=== PATIENT | female | born 1995 | race Caucasian/White ===

== ENCOUNTER 2016-10-05 05:23 | Emergency (ER) | payer BC, OTHER ==
[~2016-10-05] VITALS: Ht 165.1 cm; Wt 72.0 kg
[~2016-10-05 05:23] MED LIST: DOXY100T PO; HYDR-3580 PO
[2016-10-05 05:29] VITALS: BP 131/92; PULSE 89; RESP 12; TEMP 97.5; O2SAT 97
--- NOTE | 2016-10-05 05:40 | PD ---
HPI Chief Complaint: Laceration/Skin Injury Time Seen by Provider: 05:30 Travel History International Travel<30 days: No Contact w/Intl Traveler<30days: No Traveled to known affect area: No History of Present Illness HPI 21-year-old female presents for evaluation laceration to the chin. Prior to arrival she tripped on the sidewalk and fell, striking her chin against the ground. No loss of consciousness. She sustained a laceration to the chin which has been bleeding somewhat. She denies any other injuries. She denies any headache, intraoral injury, neck or back pain, injury to the extremities or torso. She is up-to-date on her tetanus vaccination. Other complaints. FOR[facility]LY [facility] Past Medical History Diminished Hearing: No Immunizations Current: Yes ?: Not LMP: 09/27/16 Past Surgical History Ear Surgery: Yes (Eustachian tubes X's 3) Tonsillectomy: Yes Other Surgery: Yes (Adenoids ) Social History Alcohol Use: Yes Tobacco Use: No (Quit March 03, 2014) Substance Use: No (States only using for 6 mons - states maybe once a week.) Allergies-Medications (Allergen,Severity, Reaction): Coded Allergies: No Known Allergies (Verified , 10/05/16) Reported Meds & Prescriptions Reported Meds & Active Scripts Active No Active Prescriptions or Reported Medications Review of Systems Except as stated in HPI: all other systems reviewed are Neg Physical Exam Narrative GENERAL: Well-nourished female in no acute distress SKIN: Warm and dry. 1.5 cm linear laceration to the chin. HEAD: Atraumatic. Normocephalic. EYES: Pupils equal and round. No scleral icterus. No injection or drainage. ENT: No nasal bleeding or discharge. Mucous membranes pink and moist. NECK: Trachea midline. No JVD. CARDIOVASCULAR: Regular rate and rhythm. No murmur appreciated. RESPIRATORY: No accessory muscle use. Clear to auscultation. Breath sounds equal bilaterally. GASTROINTESTINAL: Abdomen soft, non-tender, nondistended. Hepatic and splenic margins not palpable. MUSCULOSKELETAL: No obvious deformities. NEUROLOGICAL: Awake and alert. No obvious cranial nerve deficits. Motor grossly within normal limits. Normal speech. Data Data Last Documented VS Vital Signs Date Time Temp Pulse Resp B/P Pulse Ox O2 Delivery O2 Flow Rate FiO2 10/05/16 05:29 97.5 89 12 131/92 97 Orders Lidocai-Epi 1%-1:100,000 Inj (Xylocaine- (10/05/16 05:45) MDM Medical Decision Making Medical Screen Exam Complete: Yes Emergency Medical Condition: Yes Medical Record Reviewed: Yes Differential Diagnosis Laceration, facial fracture, intracranial hemorrhage, abrasion Narrative Course Patient has an isolated laceration to the chin with no other apparent injury. The laceration will be repaired with sutures, she verbally consents. She is stable for discharge. Procedures Procedure Narrative LACERATION LOCATION: Chin LENGTH: 1.5 cm NUMBER OF STITCHES/FILIBERTO: 5 REPAIR: The area of the laceration was prepped with Betadine and sterilely draped. The laceration was infiltrated with 1% lidocaine with epinephrine. The wound was copiously irrigated and explored without evidence of foreign body , tendon injury or neurovascular injury. The wound was closed using 6-0 PROLENE simple interrupted. This was a single layer repair. A sterile dressing was applied. The patient was advised to keep the dressing clean and dry. Patient tolerated the procedure well. Diagnosis Primary Impression: Facial laceration Qualified Code: S01.81XA - Facial laceration, initial encounter Additional Instructions: Wash with soap and water and apply antibiotic cream daily. Return in 5-7 days for suture removal. Med/Other Pt SpecificInfo: Wound Care Scripts No Active Prescriptions or Reported Meds Disposition: 01 DISCHARGE HOME Condition: Stable Sahil Sparrow Oct 05, 2016 05:40
[2016-10-05] MEDS ORDERED: LIDOCAINE 1%/EPINEPHrine 1:100,000 SOLN 20 ML VIAL INFIL ONE (05:45)
== END 2016-10-05 06:17 | disposition home or self-care (01) ==
LOC: NEPD 05:23
DX: S01.81XA Laceration without foreign body of other part of head, initial encounter (principal); Z87.891 Personal history of nicotine dependence; W01.0XXA Fall on same level from slipping, tripping and stumbling without subsequent striking against object, initial encounter
CPT/HCPCS: 12011